=== PATIENT | male | born 1940 | race Caucasian/White ===

== ENCOUNTER → 2020-07-29 | Outpatient (CLI) | payer MEDICARE, SELFPAY ==
[2015-12-05 19:17] VITALS: BMI 25.7
== END | disposition home or self-care (01) ==
LOC: LABSPEC 15:55
PROVIDERS: PCP Family Medicine; Referring Provider Nurse Practitioner Adult Health; Visit Provider Nurse Practitioner Adult Health
DX: N39.0 Urinary tract infection, site not specified (principal)
CPT/HCPCS: 87077; 87086; 87088; 87186